=== PATIENT | female | born 1995 | race Caucasian/White ===

== ENCOUNTER 2020-01-05 02:02 | Emergency (ER) | payer OTHER ==
[~2020-01-05] VITALS: Ht 154.9 cm; Wt 82.3 kg
[2020-01-05 02:12] VITALS: TEMP 97.6
[2020-01-05 02:52] LABS: COLLECTION METHOD CLEAN CATCH
[2020-01-05 02:58] LABS: BASO % 0.2 % (0.0-2.0); EOS # 0.1 (0.0-0.7); EOS % 0.4 % (0-4.0); GRAN # 9.5 (1.4-6.5); GRAN % 76.7 % (42.2-75.2); HEMATOCRIT 38.4 % (37.0-47.0); HEMOGLOBIN 13.1 g/dl (12.5-16.0); LYMPH # 2.1 (1.2-3.4); LYMPH % 16.9 % (20.0-51.0); MEAN CELL VOLUME 87 fl (80.0-100.0); MEAN CORPUSCULAR HEMOGLOBIN 30 pg (27.0-31.0); MEAN CORPUSCULAR HGB CONC 34 g/dl (33.0-37.0); MEAN PLATELET VOLUME 9.6 fl (7.4-10.4); MONO # 0.7 (0.1-0.6); MONO % 5.6 % (1.7-9.3); PLATELET COUNT 211 K/mm3 (130-400); RED BLOOD COUNT 4.41 M/mm3 (4.10-5.30); REDCELL DISTRIBUTION WIDTH-CV 11.9 % (11.5-14.5)
[2020-01-05 03:04] LABS: CALCIUM 8.8 mg/dL (8.4-10.2); CREATININE, serum 0.59 (0.52-1.25); POTASSIUM 3.5 mmol/L (3.4-5.0)
[2020-01-05 03:30] LABS: MUCOUS Present /lpf; PH 5 (5-8); URINE APPEARANCE Hazy; URINE BACTERIA None Seen /hpf; URINE BILIRUBIN Negative (NEGATIVE); URINE BLOOD Negative (NEGATIVE); URINE COLOR Yellow; URINE GLUCOSE Negative (NEGATIVE); URINE KETONE Negative (NEGATIVE); URINE LEUKOCYTE ESTERASE 2+ (NEGATIVE); URINE NITRATE Negative (NEGATIVE); URINE PROTEIN(semi-quant) Negative (NEGATIVE); URINE UROBILINOGEN Negative (NEGATIVE)
[2020-01-05] MEDS ORDERED: VALTREX1 GM PO (04:35)
[2020-01-05] MEDS ORDERED: AMOXICILLIN 8751 TAB PO (04:35)
[2020-01-05 05:25] VITALS: BP 128/86; PULSE 83
== END 2020-01-05 05:25 | disposition home or self-care (01) ==
LOC: COL.ER 02:02
PROVIDERS: Emergency Medicine
DX: O26.891 Other specified pregnancy related conditions, first trimester (principal); R10.2 Pelvic and perineal pain; L02.215 Cutaneous abscess of perineum; E03.9 Hypothyroidism, unspecified; Z90.49 Acquired absence of other specified parts of digestive tract; Z3A.01 Less than 8 weeks gestation of pregnancy; Z91.19 Patient's noncompliance with other medical treatment and regimen
CPT/HCPCS: J0295; J1170; J2550; J7030

== ENCOUNTER 2020-09-01 03:09 | Inpatient (IN) | payer OTHER ==
[~2020-09-01] VITALS: Ht 157.5 cm; Wt 81.4 kg
[2020-09-01] VITALS (40 sets, daily range): BP systolic 117–139; BP diastolic 72–96; PULSE 79–123; TEMP 97.6–98.7
[~2020-09-01 03:09] MED LIST: AMOXICILLIN 8751 TAB PO; VALTREX1 GM PO
--- NOTE | 2020-09-01 03:30 | NUR ---
0330 G3L1 39.3 WEEKS GEST TO LR5 WITH C/O REGULAR CONTRACTIONS SINCE MIDNIGHT. STATES THINKS WATER MAY HAVE BROKE AROUND 0030. EFM ON. SVE WITH POSITIVE AMNIOTRACE AND CLEAR FLUID NOTED. /2. MOD CONTRACTIONS PALPATED. WANTS TO GET OUT OF BED. ADM ASSESSMENT DONE. 0355 DR DAS NOTIFIED AND ORDER TO ADMIT RECEIVED.
[2020-09-01] MEDS ORDERED: WELLBUTRIN XL150 MG PO (03:35)
[2020-09-01] MEDS ORDERED: VISTARIL 2525 MG/CAP PO (03:36)
--- NOTE | 2020-09-01 04:10 | NUR ---
0410 INT STARTED AND LAB OBTAINED. PERMITS SIGNED. 0420 EFM OFF AND UP TO AMB.
[2020-09-01 05:09] LABS: BASO % 0.2 % (0.0-2.0); EOS % 0.4 % (0-4.0); GRAN # 6.9 (1.4-6.5); GRAN % 73.8 % (42.2-75.2); HEMOGLOBIN 10.9 g/dl (12.5-16.0); LYMPH # 1.9 (1.2-3.4); LYMPH % 19.7 % (20.0-51.0); MEAN CELL VOLUME 80 fl (80.0-100.0); MEAN CORPUSCULAR HEMOGLOBIN 26 pg (27.0-31.0); MEAN CORPUSCULAR HGB CONC 33 g/dl (33.0-37.0); MEAN PLATELET VOLUME 11.7 fl (7.4-10.4); MONO # 0.5 (0.1-0.6); MONO % 5.4 % (1.7-9.3); PLATELET COUNT 172 K/mm3 (130-400); RED BLOOD COUNT 4.19 M/mm3 (4.10-5.30); REDCELL DISTRIBUTION WIDTH-CV 12.7 % (11.5-14.5)
[2020-09-01 05:17] LABS: HEMATOCRIT 33.5 % (37.0-47.0)
[2020-09-01 05:43] LABS: TRICYCLIC ANTIDEPRESS URINE NEGATIVE
--- NOTE | 2020-09-01 05:45 | NUR ---
0545 EFM OFF. UP TO SHOWER PER PT REQUEST FOR BACKPAIN RELIEF.
--- NOTE | 2020-09-01 10:50 | NUR ---
Dr. Barnett at bedside and reviews plan of care with patient and SO. Verbalizes understanding. SVE by provider . AROM attempt of forebag by Dr. Barnett. No fluid noted at this time. Ana care and patient wedge left with peanut ball. Denies questions or needs at this time.
--- NOTE | 2020-09-01 12:00 | NUR ---
FHR with intermittent late, early, and variable decels. Pt repositioned, will cont. to monitor.
--- NOTE | 2020-09-01 13:07 | NUR ---
1307- Early decels noted. Patient calls RN to bedside and reports increased vaginal pressure and pain in back. SVE by this RN C/+2. Dr. Barnett notified. See physician notification. Plan of care reviewed with patient and instruted on pushing. Verbalizes understanding. 1317- Dr. Barnett to bedside. Patient in footplates for delivery. Begins to push with contractions with Dr. Barnett at bedside. Moves vertex well. 1320- Spontaneous vaginal delivery of viable male . Nucal cord x1 reduced on perineum. To mother's chest where dried and stimulated by nursery RN. Pitocin paused. 1322- Cord clamped x2 and cut by father of . Care of assumed by Adin Henao RN. 1324- Spontaneous and intact delivery of placenta. Pitocin resumed at 333ml/hr per protocol. Bilateral periurethral laceration repaired by Dr. Barnett. Fundus firm per Dr. Barnett. Straight cath by Dr. Barnett. Ana care provided, pads changed, and ice pack to perineum. Plan of care and safety precautions reviewed with patient and SO. Denies questions or needs at this time. See doctor dictation, anesthesia record, and nurses notes.
--- NOTE | 2020-09-01 16:00 | NUR ---
Patient assited to edge of bed. Denies any dizziness or lightheadedness. Ambulatory to bathroom with assist x1. Unable to void at this time. Ana care provided, pads changed, and ice pack to perineum. Instructed to increase fluids and attempt void in one hour. Patient verbalizes understanding. To room 214 via WC. Oriented to room and POC. Resing with call light within reach.
[2020-09-02 00:25] VITALS: BP 145/92; PULSE 80; TEMP 97.7
[2020-09-02 03:10] VITALS: BP 110/69; PULSE 74
[2020-09-02 08:00] VITALS: BP 124/86; PULSE 93; TEMP 98.2
[2020-09-02] MEDS ORDERED: PERCOCET 325 MG1 TA2 PO (09:08)
[2020-09-02] MEDS ORDERED: IBU600 MG PO (09:08)
[2020-09-02 16:00] VITALS: BP 134/95; PULSE 80; TEMP 98.2
[2020-09-02 17:00] VITALS: BP 123/91; PULSE 84
[2020-09-02 19:20] VITALS: BP 116/74; PULSE 92; TEMP 98.1
--- NOTE | 2020-09-03 09:02 | NUR ---
Mobile Solutions Architect responded to consult in the OB for patient who reported a history of marijuana use. Patient was negative during and upon delivery. 's cord blood is pending at this time. Patient lives with father of infant, Will Parham (ph#[phone]) who is at bedside. Patient states she also has a three year old son who is currently at home with their family friend, Ani Gutiérrez. Patient advised she has all supplies needed for new baby and is ready to get home today. Patient reports her mom and sister also live in town and she feels like she has help if she needs it. Patient is currently at this time. Patient does plan to contact the [facility] Department tomorrow once she's home to apply for WIC. Patient reports a history of anxiety and depression and that she currently manages well with medication. Patient denies any history of therapy and declines when SW offers to set her up with any mental health services. Patient also reports a history of marijuana use but states that was about three years ago. SW reviewed and provided copy of [facility] Resource Guide to patient who again states she feels ready to go home and denies any further questions or concerns. JORGE ALBERTO collaborated the above information to RNCandace who denies any concerns for patient or .
[2020-09-03 09:30] VITALS: BP 138/89; PULSE 89; TEMP 97.9
--- NOTE | 2020-09-03 11:00 | NUR ---
Discharge instructions and follow up care reviewed with pt and . Pt verbalized an understanding, agreed with the plan and state no questions or concerns at this time.
--- NOTE | 2020-09-10 16:16 | NUR ---
Patient's infant's cord blood was negative for illegal drugs in system.
== END 2020-09-03 11:10 | disposition home or self-care (01) | DRG 807 ==
LOC: LDRO 03:09 → LDR 03:09 → LDRO 03:10 → OB 16:00
PROVIDERS: Obstetrics & Gynecology; ADMIT Student in an Organized Health Care Education/Training Program
PROC: 10E0XZZ Delivery of Products of Conception, External Approach (ICD-10-PCS; principal; 2020-09-01)
PROC: 0UQMXZZ Repair Vulva, External Approach (ICD-10-PCS; 2020-09-01)
DX: O99.344 Other mental disorders complicating childbirth (principal); Z37.0 Single live birth; O71.82 Other specified trauma to perineum and vulva; Z3A.39 39 weeks gestation of pregnancy; F32.9 Major depressive disorder, single episode, unspecified; E03.9 Hypothyroidism, unspecified
CPT/HCPCS: J2405; J2590; J7120

== ENCOUNTER 2024-03-25 11:33 | Inpatient (IN) | payer BC, MEDICAID ==
[~2024-03-25] VITALS: Ht 154.9 cm; Wt 92.7 kg
[2024-03-25] VITALS (34 sets, daily range): BP systolic 112–152; BP diastolic 67–100; PULSE 82–127; TEMP 97.6–98.5
[~2024-03-25 11:33] MED LIST changes: +IBU600 MG PO; +PERCOCET 325 MG1 TA2 PO; +VISTARIL 2525 MG/CAP PO; +WELLBUTRIN XL150 MG PO
--- NOTE | 2024-03-25 11:44 | NUR ---
PT TO ROOM AND CHANGED INTO GOWN. PT HERE COMPLAINING OF CTX WITH BLOODY SHOW. DENIES LOF AND VB. REGULAR MOVEMNET FELT. SVE -/-2. DISSCUSSED PT OTIONS FOR PAIN MANAGEMENT.
--- NOTE | 2024-03-25 11:55 | NUR ---
CALLED DR TAI TO UPDATE ON PT STATUS. PT OF DR FARRELL, G4L2, 38 WEEKS, MEMBRANES INTACT, GBS NEGATIVE. DR TAI GAVE ORDERS TO ADMIT PT. PT IS UNSURE ABOUT EPIDURAL AT THIS TIME.
[2024-03-25] MEDS ORDERED: LR 1,000 ML IV PRN (12:00)
[2024-03-25] MEDS ORDERED: LR 1,000 ML IV SCH (12:00)
[2024-03-25] MEDS ORDERED: LR & Oxytocin 500 ML IV SCH (12:00)
[2024-03-25] MEDS ORDERED: PRENATAL TABLET PO (12:12)
[2024-03-25] MEDS ORDERED: COLACE 100100 MG/CAP PO (12:13)
[2024-03-25 12:29] LABS: BASO % 0.3 % (0.0-2.0); EOS % 0.3 % (0.0-4.0); GRAN # 7.3 K/mm3 (1.4-6.5); GRAN % 79.6 % (42.2-75.2); HEMOGLOBIN 12.3 g/dl (12.5-16.0); LYMPH # 1.5 K/mm3 (1.2-3.4); LYMPH % 15.7 % (20.0-51.0); MEAN CELL VOLUME 81 fl (80.0-100.0); MEAN CORPUSCULAR HEMOGLOBIN 27 pg (27-31); MEAN CORPUSCULAR HGB CONC 34 g/dl (33.0-37.0); MEAN PLATELET VOLUME 10.9 fl (7.4-10.4); MONO # 0.4 K/mm3 (0.1-0.6); MONO % 3.9 % (1.7-9.3); PLATELET COUNT 188 K/mm3 (130-400); RED BLOOD COUNT 4.54 M/mm3 (4.10-5.30); REDCELL DISTRIBUTION WIDTH-CV 12.6 % (11.5-14.5)
[2024-03-25 12:36] LABS: HEMATOCRIT 36.7 % (37.0-47.0)
--- NOTE | 2024-03-25 12:45 | NUR ---
PATIENT REQUESTING TO AMBULATE HALLS. EFM AND TOCO DISCONNECTED AND PAITENT AMBULATING WITH SIGNIFICANT OTHER.
--- NOTE | 2024-03-25 13:57 | NUR ---
GABI REQUESTING TO AMBULATE AND VOID AT THIS TIME. PATIENT ASSISTED TO THE RESTROOM AND THEN AMBULATES IN THE GROSS.
--- NOTE | 2024-03-25 14:34 | NUR ---
THIS RN IN PATIENT ROOM TO RECONNECT EFM AND TOCO, PATIENT REQUESTS TO VOID AND AMBULATES TO RESTROOM TO VOID.
--- NOTE | 2024-03-25 14:42 | NUR ---
SVE /-1, SROM AT THIS TIME MECONIUM FLUID NOTED.
--- NOTE | 2024-03-25 15:07 | NUR ---
PATIENT REQUESTING TO VOID, PATIENT AMBULATORY TO RESTROOM, VOIDS, AND REQUESTS TO SIT ON THE TOILET FOR A FEW MINUTES.
--- NOTE | 2024-03-25 15:23 | NUR ---
PATIENT ASSISTED TO BIRTHING BALL. EFM AND TOCO TRACING
--- NOTE | 2024-03-25 15:27 | NUR ---
PATIENT REQUESTS TO VOID. PATIENT ASISSTED TO RESTROOM TO VOID.
[2024-03-25] MEDS ORDERED: Ondansetron 4 MG/2 ML VIAL IV ONE (15:45)
--- NOTE | 2024-03-25 15:45 | NUR ---
PATIENT REQUESTING EPDIURAL PLACEMENT, ADELAIDA OLIVEIRA CALLED AND LR BOLUS STARTED.
[2024-03-25] MEDS ORDERED: fentaNYL 50 MCG/ML 2 ML VIAL ONE (15:57)
[2024-03-25] MEDS ORDERED: ROPivacaine PF 0.2% 200 ML IV ONE (16:10)
--- NOTE | 2024-03-25 16:11 | NUR ---
1600- ADELAIDA IN PATIENT ROOM FOR EPIDURAL PLACEMENT. PATIENT SITTING UP ON SIDE OF BED FOR PLACEMENT. 1607- SINGLE SHOT ADMINISTERED BY ROXANNE SON. 1611- PATIENT ASSISTED TO WEDGED RIGHT, THIS RN REMAINS AT BEDSIDE TO MONITOR VITAL SIGNS.
--- NOTE | 2024-03-25 16:35 | NUR ---
IN PATIENT ROOM TO DISCUSS STARTING PITOCIN DUE TO PATIENT NOT HAVING CERVICAL CHANGE, PATIENT AGREES.
[2024-03-25] MEDS ORDERED: LR 500 ML IV PRN (17:00)
[2024-03-25] MEDS ORDERED: Naloxone 0.4 MG/ML VIAL IV PRN (17:00)
[2024-03-25] MEDS ORDERED: LR 1,000 ML IV ONE (17:00)
[2024-03-25] MEDS ORDERED: ePHEDrine 50 MG/10 ML VIAL IV PRN (17:00)
[2024-03-25] MEDS ORDERED: Ondansetron 4 MG/2 ML VIAL IV PRN (17:00)
--- NOTE | 2024-03-25 19:25 | NUR ---
184- PATIENT STATES SHE IS FEELING INCREASE IN PRESSURE DURING CONTRACTIONS. SVE COMPLETE. 1849- DR. ÁLVAREZ NOTIFIED OF IMPENDING DELIVERY. STATED SHE WILL HEAD TO THE HOSPITAL. 1900- DR. ÁLVAREZ AT BEDSIDE. BED BROKEN DOWN FOR DELIVERY. 1901- VELAZQUEZ CATHETER REMOVED 1908- PATIENT BEGINS COACHED PUSHING WITH CONTRACTIONS. 1910- SPONTANEOUS VAGINAL DELIVERY OF VIABLE BABY BOY. BABY PLACED ON MOTHERS ABDOMEN. CORD CLAMPED BY DR. ÁLVAREZ AND CUT BY FOB. INFANT CARES ASSUMED BY NURSERY RN. 1917- SPONTANEOUS DELIVERY OF INTACT PLACENTA. PITOCIN STARTED AT 333ML/HR PER PROTOCOL. DR. ÁLVAREZ BEGINS REPAIR OF BILATERAL PERIURETHRAL TEAR. 1919- RECOVERY STARTED. 1924- FUNDUS FIRM. BLEEDING MINIMAL. DR. ÁLVAREZ OUT OF ROOM.
[2024-03-25] MEDS ORDERED: Acetaminophen 500 MG TAB PO SCH (20:15)
[2024-03-25] MEDS ORDERED: oxyCODONE 5 MG TAB PO PRN (20:15)
[2024-03-25] MEDS ORDERED: Ibuprofen 600 MG TAB PO SCH (20:15)
[2024-03-25] MEDS ORDERED: traZODone 50 MG TAB PO PRN (21:00)
--- NOTE | 2024-03-25 22:30 | NUR ---
2215- PATIENT ABLE TO LIFT BILATERAL LOWER EXTREMITIES. PATIENT SITTING ON EDGE OF BED. DENIES FEELING LIGHT HEADED OR NAUSEOUS. EPIDURAL CATHETER REMOVED WITH COLORED TIP INTACT. PATIENT AMBULATORY TO RESTROOM FOLLOWING DELIVERY. 2220- PATIENT UNABLE TO VOID AT THIS TIME. CLEAN UNDERWEAR AND PAD APPLIED. PERICARE PROVIDED. 2230- PATIENT AMBULATORY TO ROOM. PATIENT AND SIGNIFICANT OTHER ORIENTED TO ROOM. PLAN OF CARE EXPLAINED TO PATIENT AND SPOUSE. QUESTIONS INVITED AND ANSWERED.
[2024-03-25] MEDS ORDERED: Measles/Mumps/Rubella Virus Vaccine Live w Diluent 0.5 ML VIAL SQ SCH (23:00)
[2024-03-25] MEDS ORDERED: Mag/Al Hydrox/Simeth Susp 30 ML CUP PO PRN (23:00)
[2024-03-25] MEDS ORDERED: Magnes Hydrox (MOM) 80 MG/ML 30 ML CUP PO PRN (23:00)
[2024-03-25] MEDS ORDERED: Tdap Vaccine 0.5 ML SYRINGE IM SCH (23:00)
[2024-03-25] MEDS ORDERED: Phenylephrine/Mineral Oil/Petrolatum 57 GM TUBE RC PRN (23:00)
[2024-03-25] MEDS ORDERED: Witch Hazel 50% Pads Bulk TUB TP PRN (23:00)
[2024-03-26] VITALS: BP 138/93; PULSE 73
[2024-03-26 04:00] VITALS: BP 135/88; PULSE 89; TEMP 98.2
[2024-03-26 07:10] VITALS: BP 117/73; PULSE 77; TEMP 98.2
[2024-03-26] MEDS ORDERED: Sennosides/Docusate 8.6-50 MG TAB PO SCH (08:00)
[2024-03-26] MEDS ORDERED: MOTRIN 800800 MG/TAB PO (10:21)
[2024-03-26 11:00] VITALS: BP 129/85; PULSE 78; TEMP 98.1
--- NOTE | 2024-03-26 12:51 | NUR ---
Data: Patient declined spiritual care visit offered during Commercial Painter rounds. Baby was receiving his examination. Mother stated that she did not think a visit was necessary, but she was thankful for the offer. Assessment: None at this time. Plan of Care: Commercial Painter congratulated Patient. Chaplains will remain available as needed/requested while Patient is admitted to this hospital.
[2024-03-26 15:15] VITALS: BP 108/61; PULSE 80; TEMP 98.5
[2024-03-26 19:39] VITALS: BP 131/93; PULSE 90; TEMP 98.2
--- NOTE | 2024-03-26 21:20 | NUR ---
Discharge instructions reviewed with patient, verbalized understanding. Wrist band matched and verified with infant. Ambulated off unit with belongings in stable condition.
[2024-04-02] MEDS ORDERED: PROCARDIA XL 3030 MG PO (05:59)
[2024-04-02] MEDS ORDERED: VALTREX1 GM PO (06:04)
[2024-04-02] MEDS ORDERED: PREDNISONE20 MG PO (06:04)
== END 2024-03-26 21:20 | disposition home or self-care (01) | DRG 806 ==
LOC: LDRO 11:33 → LDR 11:59 → OB 22:30
PROVIDERS: Obstetrics & Gynecology; ADMIT Student in an Organized Health Care Education/Training Program
PROC: 10E0XZZ Delivery of Products of Conception, External Approach (ICD-10-PCS; principal; 2024-03-25)
PROC: 0UQMXZZ Repair Vulva, External Approach (ICD-10-PCS; 2024-03-25)
DX: O77.0 Labor and delivery complicated by meconium in amniotic fluid (principal); O98.32 Other infections with a predominantly sexual mode of transmission complicating childbirth; Z37.0 Single live birth; Z3A.38 38 weeks gestation of pregnancy; O99.214 Obesity complicating childbirth; O71.82 Other specified trauma to perineum and vulva; A60.09 Herpesviral infection of other urogenital tract
CPT/HCPCS: J2405; J2590; J2795; J3010; J7120